=== PATIENT | male | born 1960 | race Caucasian/White ===

== ENCOUNTER → 2017-02-03 | Outpatient (CLI) | payer OTHER ==
--- NOTE | 2017-02-03 15:30 | KCIC ---
MR of the right ankle and right foot HISTORY: Right ankle and foot pain and swelling since January 20. No known injury. Ankle findings Peroneal tendons: Intact, no dislocation Lateral ligaments: Thickening of the anterior talofibular, calcaneofibular and posterior talofibular ligaments, with some increased signal and ill-definition compatible with sprain/partial tearing, acute or subacute. No through and through discontinuity or laxity. Small ossicles adjacent to the tip of the lateral malleolus suggest old injury component. Tibiofibular syndesmosis: Thickening of the anterior inferior tibiofibular ligament compatible with scarring or less likely a more recent sprain. No discontinuity. No syndesmotic separation. Medial tendons: Posterior tibial and flexor tendons are intact. Medial ligaments: Sprain/scarring of the deep fibers the deltoid ligament without acute rupture. Anterior tendons: Anterior tibial and extensor tendons are intact. Achilles tendon: Intact Plantar aponeurosis: No acute plantar fasciitis Subtalar joints: Patent Tarsal sinus: Intact Talar Dome: Intact Bones: No aggressive destruction or acute fracture. Subchondral cystic change at the proximal cuboid is likely degenerative or reactive. Fluid: Small tibiotalar joint effusion. Small posterior subtalar joint effusion. Joints: Mild primary osteoarthritis. Soft tissues: Subcutaneous edema along the ankle, greater laterally. Foot findings Study centered at the midfoot. Mild motion degradation. Poor fat suppression with artifact at the distal metatarsals and toes. No evidence of acute fracture or aggressive bone destruction. Small subchondral intraosseous cyst at the distal aspect of the lateral cuneiform. Lisfranc ligament complex is intact as is alignment at the tarsometatarsal joint. Mild generalized soft tissue edema. The tendons of the foot demonstrate no acute rupture or significant tendon sheath fluid. Impression: 1. Sprain/partial tearing of the lateral ankle ligaments. 2. Scarring or mild sprain of the anterior inferior tibiofibular ligament. 3. Sprain/scarring of the deep fibers of the medial deltoid ligament. 4. Mild subchondral cysts at the midfoot, suggesting old trauma or mild degenerative etiology. 5. Small tibiotalar and posterior subtalar joint effusion. Electronically signed by: John Guy MD (02/03/2017 3:26 PM) [facility]
--- NOTE | 2017-02-03 15:36 | KCIC ---
Clinical Indication: Right ankle pain Technique: Study is dated February 03, 2017. Grayscale, color flow and spectral waveform analysis was performed of the right lower extremity with and without compression. Findings: There is normal compressibility of all visualized vein segments. No evidence of DVT is present on grayscale or color images. There is normal phasicity of waveform. There is normal augmentation. Impression: No evidence of deep vein thrombosis. Electronically signed by: Dave Taylor MD (02/03/2017 3:33 PM) [id number]
== END | disposition home or self-care (01) ==
LOC: KCIC MRI 13:31
PROVIDERS: ATTEND Nurse Practitioner Adult Health
DX: S93.491A Sprain of other ligament of right ankle, initial encounter (principal); M25.471 Effusion, right ankle; X58.XXXA Exposure to other specified factors, initial encounter; Y93.89 Activity, other specified; Y92.89 Other specified places as the place of occurrence of the external cause; Y99.8 Other external cause status
CPT/HCPCS: 73718; 73721; 93971